=== PATIENT | female | born 1950 | race Two or more races ===

== ENCOUNTER 2018-03-22 10:35 | Outpatient (CLI) | payer OTHER | END 2018-03-22 10:44 | disposition home or self-care (01) | LOC: RAD 10:35 | DX: R06.09 Other forms of dyspnea (principal); J45.998 Other asthma; I11.9 Hypertensive heart disease without heart failure; R73.01 Impaired fasting glucose; E66.8 Other obesity; M15.8 Other polyosteoarthritis; J98.6 Disorders of diaphragm ==